=== PATIENT | female | born 1945 | race Two or more races ===

== ENCOUNTER → 2016-11-22 | Outpatient (CLI) | payer MEDICARE | LOC: WI 13:56 | PROVIDERS: ATTEND Internal Medicine | DX: Z12.31 Encounter for screening mammogram for malignant neoplasm of breast (principal) | CPT/HCPCS: 77067; G0202 ==

== ENCOUNTER 2019-02-05 03:17 | Observation (INO) | payer MEDICARE ==
[2019-02-05] MEDS ORDERED: ALBUTEROL SULFATE 0.083% NEB 2.5 MG/3 ML AMPUL NEB ONE (03:38)
[2019-02-05] MEDS ORDERED: ASPIRIN 81 MG TABLET, CHEWABLE PO ONE (03:39)
[2019-02-05 03:52] LABS: ABSOLUTE BASOPHILS # (AUTO) 0.1 10^3/uL (0.0-0.2); ABSOLUTE EOSINOPHILS # (AUTO) 0.1 10^3/uL (0.0-0.6); ABSOLUTE MONOCYTES (AUTO) 0.6 10^3/uL (0.1-1.4); BASOPHILS % (AUTO) 0.8 % (0-2); EOSINOPHILS % (AUTO) 1.9 % (0-6); HEMOGLOBIN 13.5 g/dL (12.0-15.5); LYMPHOCYTES % (AUTO) 44.1 % (13-45); MEAN CORPUSCULAR HEMOGLOBIN 28.8 pg (27.0-33.4); MEAN CORPUSCULAR HGB CONC 33.8 g/dL (32.0-36.0); MEAN CORPUSCULAR VOLUME 85 fl (80-97); MONOCYTES % (AUTO) 8.3 % (3-13); PLATELET COUNT 179 10^3/uL (150-450); RED CELL DISTRIBUTION WIDTH 13.6 % (11.5-14.0); SEGMENTED NEUTROPHILS % (AUTO) 44.9 % (42-78); TOTAL CELLS COUNTED % (AUTO) 100 %; WHITE BLOOD COUNT 6.7 10^3/uL (4.0-10.5)
[2019-02-05 04:12] LABS: ALANINE AMINOTRANSFERASE 30 U/L (9-52); ALBUMIN 3.9 g/dL (3.5-5.0); ALKALINE PHOSPHATASE 90 U/L (38-126); ANION GAP 7 (5-19); ASPARTATE AMINO TRANSFERASE 29 U/L (14-36); BILIRUBIN,DIRECT 0.3 mg/dL (0.0-0.4); BILIRUBIN,TOTAL 0.9 mg/dL (0.2-1.3); BLOOD UREA NITROGEN 18 mg/dL (7-20); CALCIUM 9.2 mg/dL (8.4-10.2); CARBON DIOXIDE 26 mmol/L (22-30); CHLORIDE 110 mmol/L (98-107); CREATINE KINASE 144 U/L (30-135); GLUCOSE 136 mg/dL (75-110); POTASSIUM 3.9 mmol/L (3.6-5.0); TOTAL PROTEIN 6.6 g/dL (6.3-8.2)
[2019-02-05 04:23] LABS: CREATINE KINASE MB 0.65 ng/mL (<4.55); NT PRO BNP 167 pg/mL (5-900)
[2019-02-05 04:29] LABS: TROPONIN I < 0.012 ng/mL
--- NOTE | 2019-02-05 05:41 | RADIOLOGY REPORT (SQ) ---
EXAM DESCRIPTION: XR CHEST 2 VIEWS COMPLETED DATE/TME: 02/05/2019 03:39 CLINICAL HISTORY: 73 years Female, cough, CP, SOB COMPARISON:Jan 07 2016 NUMBER OF VIEWS/TECHNIQUE: 2, Frontal, Lateral FINDINGS: Increased lung volume, clear parenchyma, normal cardiac silhouette, and intact bony thorax. Atherosclerotic vascular disease. IMPRESSION: No acute cardiopulmonary findings.
--- NOTE | 2019-02-05 06:31 | ER Document Report ---
Entered by DES MASCORRO SCRIBE 02/05/19 0443 Acting as scribe for:YVONNE DUBOSE DO ED General - General Stated Complaint: DIFFICULTY BREATHING Time Seen by Provider: 02/05/19 03:20 Primary Care Provider: NALLELY ERAZO MD [Primary Care Provider] - Follow up as needed Mode of Arrival: Ambulatory Information source: Patient Notes: Patient is a 73 year old, Northern [place] speaking female with type 2 diabetes, HTN, HLD, acid reflux and a history of PE presents to the emergency department accompanied by son complaining of HTN, chest pain and shortness of breath onset this evening. Son states he routinely checks the patient's blood pressure and noted it to be high throughout the evening with readings of 161, 188 and 199. Patient states she has had intermittent chest pain for 3.5 months that worsened today approximately 1hr prior to arrival. Patient reports taking 2 baby aspirin which alleviated her chest pain. She also states she developed shortness of breath, nausea and shakiness. Patient was brought in by EMS and treated with 1 DuoNeb and 125 mg of Solu-Medrol. Patient further mentions having difficulty moving left arm for the last 3-4 months. Patient's PCP is. Dr. Arora. Son states the patient has ran out of her medications for approximately 1 month ago. TRAVEL OUTSIDE OF THE [place] IN LAST 30 DAYS: No - Related Data Allergies/Adverse Reactions: No Known Drug Allergies Allergy (Verified 03/13/18 08:56) Past Medical History - General Information source: Patient, Relative - Social History Smoking Status: Never Smoker Cigarette use (# per day): No Chew tobacco use (# tins/day): No Smoking Education Provided: No Frequency of alcohol use: None Drug Abuse: None Family History: None - Past Medical History Cardiac Medical History: Reports: Hx Hypercholesterolemia, Hx Hypertension Pulmonary Medical History: Reports: Hx Asthma Past Surgical History: Reports: Hx Cardiac Catheterization - Immunizations Hx Diphtheria, Pertussis, Tetanus Vaccination: No Review of Systems - Review of Systems Constitutional: No symptoms reported EENT: No symptoms reported Cardiovascular: See HPI, Chest pain Respiratory: See HPI, Short of breath Gastrointestinal: See HPI, Nausea Genitourinary: No symptoms reported Female Genitourinary: No symptoms reported Musculoskeletal: See HPI Skin: No symptoms reported Hematologic/Lymphatic: No symptoms reported Neurological/Psychological: See HPI -: Yes All other systems reviewed and negative Physical Exam - Vital signs Vitals: Resp BP Pulse Ox 13 179/88 H 96 02/05/19 03:22 02/05/19 03:22 02/05/19 03:22 Interpretation: Hypertensive - Notes Notes: GENERAL: Alert, interacts well. No acute distress. HEAD: Normocephalic, atraumatic. EYES: Pupils equal, round, and reactive to light. Extraocular movements intact. ENT: Oral mucosa moist, tongue midline. NECK: Full range of motion. Supple. Trachea midline. LUNGS: Mild expiratory wheezes. No rales or rhonchi. No respiratory distress. HEART: Regular rate and rhythm. No murmurs, gallops, or rubs. ABDOMEN: Soft, overweight, non-tender. Non-distended. Bowel sounds present in all 4 quadrants. No guarding, rigidity, or rebound. EXTREMITIES: Moves all 4 extremities spontaneously. No edema, radial and dorsalis pedis pulses 2/4 bilaterally. No cyanosis. NEUROLOGICAL: Alert and oriented x3. Normal speech. PSYCH: Normal affect, normal mood. SKIN: Warm, dry, normal turgor. No rashes or lesions noted. Course - Re-evaluation Re-evalutation: 02/05/19 06:28 CBC unremarkable, CMP grossly unremarkable, initial cardiac enzymes negative, ch est x-ray shows no acute process. EKG is nonischemic. Patient has been out of her medication for at least 1 month, wheezing is resolved with breathing treatments as has chest pain. Patient has a heart score of 5. Patient is never had pain like this before with her asthma exacerbations. Patient was discussed with Dr. Houston who will admit the patient to his service in observation status on the telemetry care unit. - Vital Signs Vital signs: Temp Pulse Resp BP Pulse Ox 20 180/94 H 94 02/05/19 06:00 02/05/19 04:01 02/05/19 06:00 - Laboratory Result Diagrams: 02/05/19 03:42 02/05/19 03:42 Laboratory results interpreted by me: 02/05/19 03:42 Chloride 110 H Est GFR (Non-Af Amer) 58 L Glucose 136 H Creatine Kinase 144 H - EKG Interpretation by Me Additional EKG results interpreted by me: 02/05/19 06:28 EKG shows sinus rhythm at a rate of 81, left axis deviation, normal intervals, n o ST segment elevations or depressions, no T wave inversions per my interpretation. Discharge - Discharge Clinical Impression: Chest pain, rule out acute myocardial infarction, Noncompliance with medications Asthma exacerbation Qualifiers: Asthma severity: unspecified severity Asthma persistence: unspecified Qualified Code(s): J45.901 - Unspecified asthma with (acute) exacerbation Hypertension Qualifiers: Hypertension type: essential hypertension Qualified Code(s): I10 - Essential (primary) hypertension Condition: Good Disposition: ADMITTED OBSERVATION Admitting Provider: Celso (Hospitalist) Unit Admitted: Telemetry Referrals: NALLELY ERAZO MD [Primary Care Provider] - Follow up as needed I personally performed the services described in the documentation, reviewed and edited the documentation which was dictated to the scribe in my presence, and it accurately records my words and actions.
[2019-02-05] MEDS ORDERED: DEXTROSE 50%-WATER 25 GM/50 ML DISP.SYRIN IV PRN ×2 (08:08)
[2019-02-05] MEDS ORDERED: DEXTROSE 40% GEL 15 GM TUBE PO PRN ×2 (08:08)
[2019-02-05] MEDS ORDERED: GLUCAGON,HUMAN RECOMB 1 MG INJ SUBCUT PRN (08:08)
[2019-02-05] MEDS ORDERED: ONDANSETRON HCL INJ/PF 4 MG/2 ML SDV IV PRN (08:18)
[2019-02-05] MEDS ORDERED: ACETAMINOPHEN 325 MG TABLET PO PRN (08:18)
[2019-02-05] MEDS ORDERED: NITROGLYCERIN 0.4 MG/TAB 25 TAB/BOTTLE SL PRN (08:18)
[2019-02-05] MEDS ORDERED: MAG HYDROX/AL HYDROX/SIMETH SUSP 30 ML UDCUP PO PRN (08:18)
[2019-02-05] MEDS ORDERED: IPRATROPIUM/ALBUTEROL 0.5-2.5 MG/3 ML AMPUL NEB PRN (08:26)
[2019-02-05] MEDS ORDERED: ALBUTEROL SULFATE 0.083% NEB 2.5 MG/3 ML AMPUL NEB PRN (08:26)
[2019-02-05] MEDS: ASPIRIN 81 MG TABLET, ENT COATED PO SCH (09:31)
[2019-02-05] MEDS: AMLODIPINE BESYLATE 10 MG TABLET PO SCH (09:31)
[2019-02-05] MEDS: FAMOTIDINE 20 MG TABLET PO SCH ×2 (09:31→18:36)
[2019-02-05] MEDS: LOSARTAN POTASSIUM 50 MG TABLET PO SCH (09:42)
[2019-02-05] MEDS: PAROXETINE HCL 20 MG TABLET PO SCH (09:42)
[2019-02-05] MEDS: BUSPIRONE HCL 10 MG TABLET PO SCH ×2 (09:44→18:36)
[2019-02-05] MEDS: INSULIN LISPRO 100 UNIT/ML 3 ML VIAL SUBCUT SCH ×3 (09:44→22:39)
[2019-02-05] MEDS: PANTOPRAZOLE SODIUM 40 MG TABLET.DR PO SCH (09:46)
[2019-02-05] MEDS ORDERED: INSULIN LISPRO 100 UNIT/ML 3 ML VIAL SUBCUT SCH (11:00)
[2019-02-05] MEDS ORDERED: PROMETHAZINE HCL INJ 25 MG/1 ML VIAL IV PRN (11:26)
[2019-02-05] MEDS ORDERED: AMINOPHYLLINE INJ/PF 250 MG/10 ML SDV IV ONE (12:03)
[2019-02-05] MEDS ORDERED: REGADENOSON INJ 0.4 MG/5 ML DISP.SYRIN IV ONE (12:03)
[2019-02-05] MEDS ORDERED: HYDRALAZINE HCL INJ/PF 20 MG/1 ML SDV IV PRN (12:12)
[2019-02-05] MEDS ORDERED: METOPROLOL SUCCINATE 50 MG TAB.SR.24H PO ONE (12:13)
[2019-02-05] MEDS ORDERED: BISACODYL 10 MG SUPP.RECT PR PRN (12:39)
[2019-02-05] MEDS ORDERED: INSULIN LISPRO 100 UNIT/ML 3 ML VIAL ONE (13:00)
[2019-02-05] MEDS: METOPROLOL SUCCINATE 50 MG TAB.SR.24H PO SCH ×2 (13:05→22:38)
--- NOTE | 2019-02-05 17:37 | EKG REPORT ---
SEVERITY:- OTHERWISE NORMAL ECG - SINUS RHYTHM BORDERLINE LEFT AXIS DEVIATION : Confirmed by: Christin Arroyo MD 05-Feb-2019 15:05:29
--- NOTE | 2019-02-05 19:40 | PDOC H&P ---
History of Present Illness Admission Date/PCP: 02/05/19 06:39 NALLELY ERAZO MD Patient complains of: chest pain History of Present Illness: NGHIA PATRICIO is a 73 year old female with a past medical history significant for hypertension, hyperlipidemia, hypothyroidism, DM 2, GERD, depression and anxiety who presented to the emergency department early this morning with a complaint of chest pain, shortness of breath, and hypertension when checked at home. Evaluation in the emergency department revealed hypertension (180/94), normal CBC, unremarkable chemistry, negative troponin, benign chest x-ray, and EKG demonstrating normal sinus rhythm. As the patient has multiple risk factors, she was referred to the hospitalist service for admission for chest pain rule out. Past Medical History Cardiac Medical History: Reports: Hyperlipidema, Hypertension Denies: Myocardial Infarction Pulmonary Medical History: Reports: Asthma Denies: Bronchitis, Chronic Obstructive Pulmonary Disease (COPD), Pneumonia Neurological Medical History: Denies: Seizures Endocrine Medical History: Reports: Diabetes Mellitus Type 2 Renal/ Medical History: Reports: None Malignancy Medical History: Reports: None GI Medical History: Reports: Gastroesophageal Reflux Disease Musculoskeltal Medical History: Reports: Arthritis Psychiatric Medical History: Reports: Depression, General Anxiety Disorder Traumatic Medical History: Reports: None Hematology: Denies: Anemia Past Surgical History Past Surgical History: Reports: Cardiac Catheterization Denies: Hysterectomy, Pacemaker Social History Information Source: Patient, Parent Lives with: Family Smoking Status: Former Smoker Cigarettes Packs Per Day: 0.5 Cigars Per Day: 0 Pipes Per Day: 0 Number of Years Smokin Last Time Smoked: 07/10/1979 Frequency of Alcohol Use: None Hx Recreational Drug Use: No Hx Prescription Drug Abuse: No - Advance Directive Resuscitation Status: Full Code Family History Family History: None Parental Family History Reviewed: Yes Children Family History Reviewed: Yes Sibling(s) Family History Reviewed.: Yes Medication/Allergy Home Medications: Aspirin [Ecotrin 81 mg EC Tablet] 81 mg PO DAILY 02/05/19 Atorvastatin Calcium [Lipitor 10 mg Tablet] 10 mg PO QHS 02/05/19 Buspirone HCl [Buspar 15 mg Tablet] 15 mg PO BID 02/05/19 Metoprolol Succinate [Toprol Xl 50 mg Tab.sr] 50 mg PO Q12 02/05/19 Paroxetine HCl [Paxil] 40 mg PO DAILY 02/05/19 RX: Amlodipine Besylate [Norvasc 10 mg Tablet] 10 mg PO DAILY 02/05/19 RX: Losartan Potassium [Cozaar 100 mg Tablet] 100 mg PO DAILY 02/05/19 RX: Metformin HCl [Glucophage 500 mg Tablet] 500 mg PO BID 02/05/19 RX: Omeprazole 40 mg PO DAILY 02/05/19 RX: Trazodone HCl [Desyrel 50 mg Tablet] 50 mg PO QHS 02/05/19 Allergies/Adverse Reactions: No Known Drug Allergies Allergy (Verified 02/05/19 08:27) Review of Systems Constitutional: ABSENT: chills, fever(s), headache(s), weight gain, weight loss Eyes: ABSENT: visual disturbances Ears: ABSENT: hearing changes Cardiovascular: PRESENT: as per HPI Respiratory: ABSENT: cough, hemoptysis Gastrointestinal: ABSENT: abdominal pain, constipation, diarrhea, hematemesis, hematochezia, nausea, vomiting Genitourinary: ABSENT: dysuria, hematuria Musculoskeletal: ABSENT: joint swelling Integumentary: ABSENT: rash, wounds Neurological: ABSENT: abnormal gait, abnormal speech, confusion, dizziness, focal weakness, syncope Psychiatric: ABSENT: anxiety, depression, homidical ideation, suicidal ideation Endocrine: ABSENT: cold intolerance, heat intolerance, polydipsia, polyuria Hematologic/Lymphatic: ABSENT: easy bleeding, easy bruising Physical Exam Vital Signs: Temp Pulse Resp BP Pulse Ox 97.7 F 77 20 147/70 H 96 02/05/19 15:03 02/05/19 15:03 02/05/19 15:03 02/05/19 15:03 02/05/19 15:03 Intake & Output 02/04/19 02/05/19 02/06/19 06:59 06:59 06:59 Intake Total 516 Output Total 100 Balance 416 Weight 86.4 kg General appearance: PRESENT: no acute distress, cooperative, obese, well- developed, well-nourished Head exam: PRESENT: atraumatic, normocephalic Eye exam: PRESENT: conjunctiva pink, EOMI, PERRLA. ABSENT: scleral icterus Mouth exam: PRESENT: moist, tongue midline Neck exam: ABSENT: carotid bruit, JVD, lymphadenopathy, thyromegaly Respiratory exam: PRESENT: clear to auscultation prince, symmetrical, unlabored. ABSENT: rales, rhonchi, wheezes Cardiovascular exam: PRESENT: RRR, +S1, +S2. ABSENT: diastolic murmur, rubs, systolic murmur Pulses: PRESENT: normal dorsalis pedis pul Vascular exam: PRESENT: normal capillary refill GI/Abdominal exam: PRESENT: normal bowel sounds, soft. ABSENT: distended, guarding, mass, organolmegaly, rebound, tenderness Rectal exam: PRESENT: deferred Extremities exam: PRESENT: full ROM. ABSENT: calf tenderness, clubbing, pedal edema Neurological exam: PRESENT: alert, awake, oriented to person, oriented to place, oriented to time, oriented to situation, CN II-XII grossly intact. ABSENT: motor sensory deficit Psychiatric exam: PRESENT: appropriate affect, normal mood. ABSENT: homicidal ideation, suicidal ideation Skin exam: PRESENT: dry, intact, warm. ABSENT: cyanosis, rash Results Laboratory Results: 02/05/19 03:42 02/05/19 03:42 02/05/19 02/05/19 03:42 03:42 WBC 6.7 RBC 4.70 Hgb 13.5 Hct 40.0 MCV 85 MCH 28.8 MCHC 33.8 RDW 13.6 Plt Count 179 Seg Neutrophils % 44.9 Lymphocytes % 44.1 Monocytes % 8.3 Eosinophils % 1.9 Basophils % 0.8 Absolute Neutrophils 3.0 Absolute Lymphocytes 3.0 Absolute Monocytes 0.6 Absolute Eosinophils 0.1 Absolute Basophils 0.1 Sodium 142.6 Potassium 3.9 Chloride 110 H Carbon Dioxide 26 Anion Gap 7 BUN 18 Creatinine 0.95 Est GFR ( Amer) > 60 Est GFR (Non-Af Amer) 58 L Glucose 136 H Calcium 9.2 Total Bilirubin 0.9 AST 29 ALT 30 Alkaline Phosphatase 90 Total Protein 6.6 Albumin 3.9 02/05/19 02/05/19 02/05/19 03:42 03:42 07:54 Creatine Kinase 144 H CK-MB (CK-2) 0.65 Troponin I < 0.012 < 0.012 NT-Pro-B Natriuret Pep 167 02/05/19 14:41 Creatine Kinase CK-MB (CK-2) Troponin I < 0.012 NT-Pro-B Natriuret Pep Impressions: Chest X-Ray 02/05/19 03:39 IMPRESSION: No acute cardiopulmonary findings. Assessment and Plan - Diagnosis (1) Chest pain, rule out acute myocardial infarction Is this a current diagnosis for this admission?: Yes Plan: Patient presented with atypical chest pain, though multiple risk factors including age, hypertension, hyperlipidemia, diabetes mellitus, and weight. CXR is benign. EKG is reassuring. Troponins negative x3 at time of dictation. Patient denies active chest pain at this time. We will plan on nuclear stress testing in the morning. Sublingual nitroglycerin as needed. IV morphine for breakthrough pain. Aspirin 81 mg daily. Daily statin therapy. Cardiac diet. Check A1C, TSH, and Lipid panel w/ a.m. lab work (2) Diabetes Qualifiers: Diabetes mellitus type: type 2 Diabetes mellitus intermediate designer insulin use: without intermediate designer use Diabetes mellitus complication status: with hyperglycemia Qualified Code(s): E11.65 - Type 2 diabetes mellitus with hyperglycemia Is this a current diagnosis for this admission?: Yes Plan: We will check A1c with a.m. lab work. Holding metformin while admitted. Patient is placed on consistent carb diet with Accu-Cheks before meals and at bedtime with Humalog for sliding scale coverage. Hypoglycemia protocol placed. (3) Hyperlipidemia Is this a current diagnosis for this admission?: Yes Plan: Patient endorses a history of hyperlipidemia. We will check lipid panel with a.m. lab work. Continue daily statin therapy. Consistent carb/cardiac diet. (4) Hypothyroidism Is this a current diagnosis for this admission?: Yes Plan: Patient endorses a history of hypothyroidism. Patient son reports that has been more than a year since her last thyroid check. We will check TSH and free T4 with a.m. lab work. Continue home dose levothyroxine for now. (5) Hypertension Qualifiers: Hypertension type: essential hypertension Qualified Code(s): I10 - Essenti al (primary) hypertension Is this a current diagnosis for this admission?: Yes Plan: Patient endorses a history of hypertension; found to have elevated blood pressures on arrival. Of note the patient has been out of her home medications for greater than a month due to financial difficulty with follow-up with PCP. We will resume her previously prescribed amlodipine, losartan, metoprolol. Cardiac diet. Discharge planning is consulted. - Time Time Spent with patient: 35 or more minutes Medications reviewed and adjusted accordingly: Yes Anticipated discharge: Home Within: within 24 hours
[2019-02-05] MEDS ORDERED: MELATONIN 5 MG TABLET PO SCH (22:00)
[2019-02-05] MEDS ORDERED: METOPROLOL SUCCINATE 50 MG TAB.SR.24H PO SCH (22:00)
[2019-02-05] MEDS ORDERED: TRAZODONE HCL 50 MG TABLET PO SCH (22:00)
[2019-02-05] MEDS ORDERED: ATORVASTATIN CALCIUM 20 MG TABLET PO SCH (22:00)
[2019-02-06] MEDS: PANTOPRAZOLE SODIUM 40 MG TABLET.DR PO SCH (05:30)
[2019-02-06 08:12] LABS: ABSOLUTE LYMPHOCYTES (AUTO) 2.3 10^3/uL (0.5-4.7); ABSOLUTE MONOCYTES (AUTO) 0.7 10^3/uL (0.1-1.4); ABSOLUTE NEUT (AUTO) 10.2 10^3/uL (1.7-8.2); BASOPHILS % (AUTO) 0.1 % (0-2); EOSINOPHILS % (AUTO) 0.1 % (0-6); HEMATOCRIT 39.5 % (36.0-47.0); HEMOGLOBIN 13.1 g/dL (12.0-15.5); LYMPHOCYTES % (AUTO) 17.2 % (13-45); MEAN CORPUSCULAR HEMOGLOBIN 28.7 pg (27.0-33.4); MEAN CORPUSCULAR HGB CONC 33.3 g/dL (32.0-36.0); MEAN CORPUSCULAR VOLUME 86 fl (80-97); MONOCYTES % (AUTO) 5.3 % (3-13); PLATELET COUNT 215 10^3/uL (150-450); RED BLOOD COUNT 4.58 10^6/uL (3.72-5.28); RED CELL DISTRIBUTION WIDTH 13.5 % (11.5-14.0); SEGMENTED NEUTROPHILS % (AUTO) 77.3 % (42-78); TOTAL CELLS COUNTED % (AUTO) 100 %; WHITE BLOOD COUNT 13.2 10^3/uL (4.0-10.5)
[2019-02-06] MEDS: INSULIN LISPRO 100 UNIT/ML 3 ML VIAL SUBCUT SCH ×3 (08:49→16:25)
[2019-02-06 08:53] LABS: ANION GAP 8 (5-19); BLOOD UREA NITROGEN 17 mg/dL (7-20); CALCIUM 9.3 mg/dL (8.4-10.2); CARBON DIOXIDE 24 mmol/L (22-30); CHLORIDE 110 mmol/L (98-107); CHOLESTEROL 177.51 mg/dL (0-200); GLUCOSE 126 mg/dL (75-110); POTASSIUM 4.1 mmol/L (3.6-5.0); TRIGLYCERIDES 121 mg/dL (<150)
[2019-02-06 09:02] LABS: FREE T4 (FREE THYROXINE) 1.16 ng/dL (0.78-2.19)
[2019-02-06 09:04] LABS: DIRECT LDL 112 mg/dL (<100)
[2019-02-06 09:16] LABS: THYROID STIMULATING HORMONE 1.11 uIU/mL (0.47-4.68)
[2019-02-06] MEDS: PAROXETINE HCL 20 MG TABLET PO SCH (13:36)
[2019-02-06] MEDS: LOSARTAN POTASSIUM 50 MG TABLET PO SCH (13:36)
[2019-02-06] MEDS: METOPROLOL SUCCINATE 50 MG TAB.SR.24H PO SCH (13:37)
[2019-02-06] MEDS: FAMOTIDINE 20 MG TABLET PO SCH ×2 (13:37→17:30)
[2019-02-06] MEDS: AMLODIPINE BESYLATE 10 MG TABLET PO SCH (13:37)
[2019-02-06] MEDS: BUSPIRONE HCL 10 MG TABLET PO SCH ×2 (13:38→17:29)
[2019-02-06] MEDS: ASPIRIN 81 MG TABLET, ENT COATED PO SCH (13:38)
[2019-02-06 17:12] VITALS: BP 137/57
--- NOTE | 2019-02-06 22:49 | DRAGON STRESS TEST REPORT ---
Intravenous Lexiscan Cardiolite stress test using single photon emmision computerized tomography. Date of procedure: 02/06/2019.Ordering Provider: Ms. Mouna Richter, nurse practitioner. Patient's status: In patient. Indication: Chest pain. Coronary risk factors: Age, diabetes mellitus, hypertension, and dyslipidemia. Resting EKG: Sinus Bradycardia. Within Normal Limits. Stress EKG: No changes of ischemia. After the intravenous injection of Lexiscan and after the stress dose of Cardiolite was given intravenously, the patient developed shortness of breath with wheezing. This resolved with 50 mg of Aminophyllin given intravenously. The patient had no chest pain or discomfort. There is no arrhythmia seen. Reason for termination: Protocol. Conclusions: Normal EKG and hemodynamic response to IV Lexiscan. Nuclear data: At rest the patient was given 13.63 millicuries of technetium 99m sestamibi injected intravenously. As per protocol rest non gated SPECT images were obtained. Subsequently the patient was given intravenous Lexiscan at a dose of 0.4 mg in 5 mL intravenously, followed by flush with normal saline. Subsequently the stress dose of 39.5 millicuries of technetium 99m sestamibi was injected intravenously. As per protocol stress gated images were obtained. Nuclear interpretation: Review of images showed that all segments of the myocardium had normal perfusion at rest, and normal perfusion post stress with IV Lexiscan. All segments of the myocardium had normal motion, contraction, and thickening by gated study. T. I D. ratio was normal at 1.15. There is no transient ischemic dilatation of the left ventricle. Computer read rest, and stress left ventricular ejection fraction were 64 %, and 61 %, respectively. Conclusion: 1. There is no scintigraphic evidence of Lexiscan induced myocardial ischemia. 2. There is no scintigraphic evidence of myocardial infarction/scar. Recommendations: Aggressive risk factor modification, and treating the underlying co- morbidities. MTDD
--- NOTE | 2019-02-09 18:48 | PDOC DISCHARGE SUMMARY ---
General - Admit/Disc Date/PCP Admission Date/Primary Care Provider: 02/05/19 06:39 NALLELY ERAZO MD Discharge Date: 02/06/19 - Discharge Diagnosis (1) Chest pain, rule out acute myocardial infarction Is this a current diagnosis for this admission?: Yes Summary: Patient presented with atypical chest pain, though multiple risk factors including age, hypertension, hyperlipidemia, diabetes mellitus, and weight. Likely secondary to hypertensive urgency. CXR is benign. EKG is reassuring. Troponins negative x3 A1C 6.4% TSH and Lipid panel are acceptable Nuclear stress testing was normal. She was admitted to the medical floor on continuous telemetry. She is started on daily aspirin and statin therapy. Management of HTN as below. She is discharged home in stable condition. She is take your medications as prescribed; do not discontinue medications without for speaking to provider. Continue a cardiac/consistent carb diet. Return to the emergency department as needed for concerning symptoms. (2) Diabetes Is this a current diagnosis for this admission?: Yes Summary: A1c 6.4%. Continue consistent carb/cardiac diet. Resume outpatient medication regimen. (3) Hyperlipidemia Is this a current diagnosis for this admission?: Yes Summary: Lipid panel is acceptable. Continue consistent carb/cardiac diet. Continue atorvastatin 10 mg daily. (4) Hypothyroidism Is this a current diagnosis for this admission?: Yes Summary: TSH 1.11, free T4 1.16. Continue home dose levothyroxine. (5) Hypertension Is this a current diagnosis for this admission?: Yes Summary: Improved blood pressures with resumption of prior home medications. 137/57 at discharge. Patient is discharged with prescriptions for amlodipine, losartan, and metoprolol. She is advised of the importance of not discontinuing medications without sp eaking with her health care provider beforehand. She is encouraged to continue a cardiac diet. - Additional Information Resuscitation Status: Full Code Discharge Diet: Cardiac Discharge Activity: Activity As Tolerated, Balance Activity w/Rest Prescriptions: Amlodipine Besylate [Norvasc 10 mg Tablet] 10 mg PO DAILY #30 tablet Aspirin [Ecotrin 81 mg EC Tablet] 81 mg PO DAILY #90 tabec Atorvastatin Calcium [Lipitor 10 mg Tablet] 10 mg PO QHS #30 tablet Buspirone HCl [Buspar 10 mg Tablet] 10 mg PO BID #60 tablet Losartan Potassium [Cozaar 100 mg Tablet] 100 mg PO DAILY #30 tablet Melatonin [Melatonin 5 mg Tablet] 10 mg PO DAILY@2200 #90 tablet Metformin HCl [Glucophage 500 mg Tablet] 500 mg PO BID #60 tablet Metoprolol Succinate [Toprol Xl 50 mg Tab.sr] 50 mg PO Q12 #60 tab.sr.24h Omeprazole 40 mg PO DAILY #30 capsule. Paroxetine HCl [Paxil 20 mg Tablet] 20 mg PO DAILY #30 tablet Home Medications: Aspirin [Ecotrin 81 mg EC Tablet] 81 mg PO DAILY 02/05/19 Acetaminophen [Tylenol 325 mg Tablet] 650 mg PO Q4HP PRN tablet 02/06/19 Amlodipine Besylate [Norvasc 10 mg Tablet] 10 mg PO DAILY #30 tablet 02/06/19 Aspirin [Ecotrin 81 mg EC Tablet] 81 mg PO DAILY #90 tabec 02/06/19 Atorvastatin Calcium [Lipitor 10 mg Tablet] 10 mg PO QHS #30 tablet 02/06/19 Buspirone HCl [Buspar 10 mg Tablet] 10 mg PO BID #60 tablet 02/06/19 Losartan Potassium [Cozaar 100 mg Tablet] 100 mg PO DAILY #30 tablet 02/06/19 Melatonin [Melatonin 5 mg Tablet] 10 mg PO DAILY@2200 #90 tablet 02/06/19 Metformin HCl [Glucophage 500 mg Tablet] 500 mg PO BID #60 tablet 02/06/19 Metoprolol Succinate [Toprol Xl 50 mg Tab.sr] 50 mg PO Q12 #60 tab.sr.24h 02/06/19 Omeprazole 40 mg PO DAILY #30 capsule. 02/06/19 Paroxetine HCl [Paxil 20 mg Tablet] 20 mg PO DAILY #30 tablet 02/06/19 History of Present Illness History of Present Illness: NGHIA PATRICIO is a 73 year old female with a past medical history significant for hypertension, hyperlipidemia, hypothyroidism, DM 2, GERD, depression and anxiety who presented to the emergency department early this morning with a complaint of chest pain, shortness of breath, and hypertension when checked at home. Evaluation in the emergency department revealed hypertension (180/94), normal CBC, unremarkable chemistry, negative troponin, benign chest x-ray, and EKG demonstrating normal sinus rhythm. As the patient has multiple risk factors, she was referred to the hospitalist service for admission for chest pain rule out. Physical Exam Vital Signs: Temp Pulse Resp BP Pulse Ox 98.1 F 56 L 20 137/57 H 96 02/06/19 17:00 02/06/19 17:00 02/06/19 17:00 02/06/19 17:00 02/06/19 17:00 General appearance: PRESENT: no acute distress, cooperative, obese, well- developed, well-nourished Head exam: PRESENT: atraumatic, normocephalic Eye exam: PRESENT: conjunctiva pink, EOMI, PERRLA. ABSENT: scleral icterus Ear exam: PRESENT: normal external ear exam Mouth exam: PRESENT: moist, tongue midline Neck exam: ABSENT: carotid bruit, JVD, lymphadenopathy, thyromegaly Respiratory exam: PRESENT: clear to auscultation prince, symmetrical, unlabored. ABSENT: rales, rhonchi, wheezes Cardiovascular exam: PRESENT: RRR. ABSENT: diastolic murmur, rubs, systolic murmur Pulses: PRESENT: normal dorsalis pedis pul Vascular exam: PRESENT: normal capillary refill GI/Abdominal exam: PRESENT: normal bowel sounds, soft. ABSENT: distended, guarding, mass, organolmegaly, rebound, tenderness Rectal exam: PRESENT: deferred Extremities exam: PRESENT: full ROM. ABSENT: calf tenderness, clubbing, pedal edema Neurological exam: PRESENT: alert, awake, oriented to person, oriented to place, oriented to time, oriented to situation, CN II-XII grossly intact. ABSENT: motor sensory deficit Psychiatric exam: PRESENT: appropriate affect, normal mood. ABSENT: homicidal ideation, suicidal ideation Skin exam: PRESENT: dry, intact, warm. ABSENT: cyanosis, rash Results Laboratory Results: 02/06/19 07:29 02/06/19 07:29 02/05/19 02/05/19 02/05/19 03:42 03:42 07:54 Creatine Kinase 144 H CK-MB (CK-2) 0.65 Troponin I < 0.012 < 0.012 NT-Pro-B Natriuret Pep 167 02/05/19 14:41 Creatine Kinase CK-MB (CK-2) Troponin I < 0.012 NT-Pro-B Natriuret Pep Impressions: Chest X-Ray 02/05/19 03:39 IMPRESSION: No acute cardiopulmonary findings. Qualifiers - * PATIENT BEING DISCHARGED WITH ANY OF THE FOLLOWING DIAGNOSIS: No Acute Heart Failure - Is this a Heart Failure Patient?: No Plan Discharge Plan: Patient is discharged home in stable condition. She is advised to follow up with the primary care provider within 1 week. Take medications as prescribed. Return to the emergency department as needed for concerning symptoms Time Spent: Greater than 30 Minutes
== END 2019-02-06 18:15 | disposition home or self-care (01) ==
LOC: ER 03:17 → EH 06:39 → 4W 08:52 → 4S 15:18
PROVIDERS: ADMIT Emergency Medicine; ATTEND Emergency Medicine
DX: R07.89 Other chest pain (principal); I10 Essential (primary) hypertension; E78.5 Hyperlipidemia, unspecified; E11.65 Type 2 diabetes mellitus with hyperglycemia; E03.9 Hypothyroidism, unspecified; K21.9 Gastro-esophageal reflux disease without esophagitis; F32.9 Major depressive disorder, single episode, unspecified; F41.1 Generalized anxiety disorder; R06.02 Shortness of breath; E66.9 Obesity, unspecified; Z79.899 Other long term (current) drug therapy; Z79.82 Long term (current) use of aspirin; Z79.84 Long term (current) use of oral hypoglycemic drugs; Z87.891 Personal history of nicotine dependence; Z59.8 Other problems related to housing and economic circumstances; Z91.14 Patient's other noncompliance with medication regimen; Z86.711 Personal history of pulmonary embolism
CPT/HCPCS: 93005; 94640; 99285; 36415 ×2; 84439; 82553; 82962 ×2; 82550; 84443; 85025 ×2; 80048; 80053; 84484; 83036; 80061; 83880; 93017; 71046; 78452; 93010; G0378 ×2; A9500; J2785; A9270 ×19; J2550; J3490 ×2; J2405; J0280; Q9969; J1815